=== PATIENT | male | born 1985 | race Caucasian/White ===

== ENCOUNTER → 2021-08-01 09:51 | Outpatient (BNVA) | payer MEDICAID, SELFPAY | PROVIDERS: Visit Provider Nurse Practitioner | DX: I10 Essential (primary) hypertension (principal) | CPT/HCPCS: 80053; 80061; 81000 ==

== ENCOUNTER → 2021-08-02 07:36 | Outpatient (BNVA) | payer MEDICAID, SELFPAY | PROVIDERS: Visit Provider Nurse Practitioner | DX: R73.9 Hyperglycemia, unspecified (principal) | CPT/HCPCS: 83036 ==

== ENCOUNTER 2022-01-11 20:12 | Emergency (ER) | payer MEDICAID, SELFPAY ==
[2022-01-11 20:18] VITALS: BP 136/86; PULSE 97; RESP 18; TEMP 36.7; O2SAT 98; BMI 41.9
--- NOTE | 2022-01-11 20:50 | CTR_ITS ---
PROCEDURE INFORMATION: Exam: CT Abdomen And Pelvis Without Contrast Exam date and time: 01/11/2022 9:08 PM Age: 36 years old Clinical indication: Abdominal pain; Additional info: Ruq abd pain R flank pain TECHNIQUE: Imaging protocol: Computed tomography of the abdomen and pelvis without contrast. Radiation optimization: All CT scans at this facility use at least one of these dose optimization techniques: automated exposure control; mA and/or kV adjustment per patient size (includes targeted exams where dose is matched to clinical indication); or iterative reconstruction. COMPARISON: No relevant prior studies available. RADIATION DOSE METRICS: Total DLP (mGy-cm): 1216.83 FINDINGS: Lungs: Left basilar linear scarring-atelectasis. Liver: Mild hepatomegaly with diffuse steatosis. No cirrhosis. Area of fatty sparing in the posterior left lobe. Gallbladder and bile ducts: Normal. No calcified stones. No ductal dilation. Pancreas: Normal. No ductal dilation. Spleen: Normal. No splenomegaly. Adrenal glands: Normal. No mass. Kidneys and ureters: Nonobstructing left interpolar renal calculus measuring 2 x 2 mm. Stomach and bowel: Moderate amount of fecal retention. No obvious bowel dilatation, pneumatosis or suspicious bowel wall thickening however assessment is limited due to lack of contrast. Appendix: Normal appendix. Intraperitoneal space: Unremarkable. No free air. No significant fluid collection. Vasculature: No abdominal aortic aneurysm. Lymph nodes: No enlarged lymph nodes. Urinary bladder: Unremarkable as visualized. Reproductive: Unremarkable as visualized. Bones/joints: No acute fracture. Soft tissues: No acute findings. CT/CT kidney stone [id number] IMPRESSION: 1. No acute urinary tract findings or obstructing urinary calculi. Punctate nonobstructing left renal calculus is present. Somewhat limited exam due to lack of contrast. 2. Moderate stool burden. No acute bowel findings otherwise. 3. Mild hepatomegaly with diffuse steatosis. Clinical correlation for hepatitis should be obtained.
[2022-01-11 21:04] LABS: Basophils # 0.1 10^3/uL (0.0-0.1); Basophils % 0.8 %; Eosinophils # 0.2 10^3/uL (0.0-0.8); Eosinophils % 1.9 %; Hematocrit 48.4 % (42.0-52.0); Hemoglobin 16.5 g/dL (11.7-16.6); Lymphocytes # 3.7 10^3/uL (0.8-4.8); Lymphocytes % 36.2 %; Mean Corpuscular HGB Conc 34.1 g/dL (30.0-36.0); Mean Corpuscular Hemoglobin 29.1 pg (28.0-34.0); Mean Corpuscular Volume 85.4 fl (80-94); Mean Platelet Volume 9.7 fL (7.4-10.4); Monocytes # 0.9 10^3/uL (0.2-0.9); Monocytes % 8.5 %; Neutrophils % 52.3 %; Nucleated Red Blood Cells % 0 %; Platelet Count 334 10^3/cmm (130-400); Red Blood Count 5.67 10^6/uL (4.1-5.3); Red Cell Distribution Width 11.7 % (12.1-15.1); White Blood Count 10.3 10^3/uL (4.0-10.0)
[2022-01-11] MEDS: ondansetron 2 mg/ML SDV 2 mL 4 MG IVP (21:05)
[2022-01-11 21:07] VITALS: RESP 18
[2022-01-11] MEDS: HYDROmorphone 1 mg/mL INJ 1 mL IVP (21:07)
[2022-01-11 21:08] LABS: Add Urine Microscopic? NO; Charge for UA Resulting for Rev
--- NOTE | 2022-01-11 21:09 | ED_ITS ---
HPI - Abdominal Pain General: Chief Complaint: Abdominal Pain Stated Complaint: ABD Pain and Back Pain Time Seen by Provider: 01/11/22 20:47 Source: patient Mode of arrival: ambulatory Limitations: no limitations History of Present Illness: 36-year-old male who states he has been having right flank pain throughout the day. States that sharp pain in the right flank along with some right upper quadrant pain. He states he had a kidney stone before and this feels similar pain does go on his testicle denies any blood in his urine denies any worsening proving factors he has had no vomiting or diarrhea. Denies any fevers. Associated Symptoms: Denies chills, dysuria and fever(s) Review of Systems Const: Denies: fever(s), chills, body aches or change in appetite Eyes: Denies: blurry vision or eye discomfort ENMT: Denies: throat pain or dental pain Card: Denies: chest pain Resp: Denies: dyspnea GI: Reports: abdominal pain : Denies: dysuria Musc: Denies: neck pain or back pain Skin/Breast: Denies: rash Neuro: Denies: headache(s) Psych: Denies: depression Dante/Lymph: Denies: easy bruising All/Imm: Denies: urticaria PFSH ED PFSH: Medical History (Updated 01/11/22 @ 22:06 by Milena Alcantar MD) Essential hypertension SEVERO (generalized anxiety disorder) Lumbar neuralgia Surgical History No pertinent past surgical history Family History Grandfather Cancer Diabetes Hypertension Grandmother Diabetes Hypertension Mother Lung disease Denies family history of Clotting disorder Chronic kidney disease (CKD) Suicide Stroke Social History Smoking and tobacco status: former smoker Second hand smoke exposure: No Smoking risk assessment/counseling performed?: No Alcohol intake: never Desire information about alcohol rehabilitation?: No Counseling given: No Desire information about substance/drug rehabilitation?: No Counseling given: No Adopted: No Caregiver/support person: No Lives independently: Yes Household members: spouse and children Housing: Manufactured/Mobile home Marital status: Number of children: 5 Highest education level completed: Some College, No Degree service: No Current occupational status: employed Pets and animals: Yes Current gender identity: Male Physical Exam Const: COMMON NORMALS: no acute distress, patient oriented x3 and healthy appearing HENMT: COMMON NORMALS: normocephalic and atraumatic HEAD & SCALP: normocephalic and atraumatic Eye: COMMON NORMALS: Equal, round and reactive pupils present and EOMs intact bilaterally PUPIL: Yes Equal, round and reactive pupils present Neck/C-Spine: COMMON NORMALS: full ROM and supple Chest: COMMONS NORMALS: normal inspection of the chest and normal palpation of entire chest wall Resp: COMMON NORMALS: normal respiratory effort, No retractions, No use of accessory muscles and clear to auscultation bilaterally AUSCULTATION: clear to auscultation bilaterally Cardio: COMMON NORMALS: regular rate, regular rhythm and No murmurs present (Cardio) RATE: regular rate RHYTHM: regular rhythm GI: COMMON NORMALS: Normal to inspection, nondistended, normoactive bowel sounds present, Soft to palpation, non-tender and no masses PALPATION: Yes Soft to palpation Extremity: COMMON NORMALS: normal to inspection and full ROM Neuro: COMMON NORMALS: patient oriented x3, moves all extremities and no focal motor deficits Psych: COMMON NORMALS: mental status grossly normal, Normal thought process present and cooperative THOUGHT PROCESS: Normal thought process present Skin: COMMON NORMALS: no rashes or lesions noted and no wounds GENERAL SKIN EXAM: no rashes or lesions noted Course Vital Signs: Vital signs: Vital Signs Temperature 98.1 F 01/11/22 20:18 Pulse Rate 76 01/11/22 21:35 Respiratory Rate 18 01/11/22 21:07 Blood Pressure 147/60 01/11/22 21:35 Pulse Oximetry 95 01/11/22 21:35 Oxygen Delivery Me thod 01/11/22 20:18 MDM - Abdominal Pain Medical Decision Making Patient presents here with abdominal pain CT and blood work are all normal we will get him follow-up with surgery his pain is improved here he is to return if worsening he understands agrees to plan. Lab Data : 01/11/22 20:55 01/11/22 20:55 Labs/Radiology: Radiology Impressions Abdomen/Pelvis CT 01/11/22 20:50 IMPRESSION: 1. No acute urinary tract findings or obstructing urinary calculi. Punctate nonobstructing left renal calculus is present. Somewhat limited exam due to lack of contrast. 2. Moderate stool burden. No acute bowel findings otherwise. 3. Mild hepatomegaly with diffuse steatosis. Clinical correlation for hepatitis should be obtained. Laboratory Results WBC 10.3 10^3/uL (4.0-10.0) H 01/11/22 20:55 RBC 5.67 10^6/uL (4.1-5.3) H 01/11/22 20:55 Hgb 16.5 g/dL (11.7-16.6) 01/11/22 20:55 Hct 48.4 % (42.0-52.0) 01/11/22 20:55 MCV 85.4 fl (80-94) 01/11/22 20:55 MCH 29.1 pg (28.0-34.0) 01/11/22 20:55 MCHC 34.1 g/dL (30.0-36.0) 01/11/22 20:55 RDW 11.7 % (12.1-15.1) L 01/11/22 20:55 Plt Count 334 10^3/cmm (130-400) 01/11/22 20:55 MPV 9.7 fL (7.4-10.4) 01/11/22 20:55 Neut % (Auto) 52.3 % 01/11/22 20:55 Lymph % (Auto) 36.2 % 01/11/22 20:55 [place] % (Auto) 8.5 % 01/11/22 20:55 Eos % (Auto) 1.9 % 01/11/22 20:55 Baso % (Auto) 0.8 % 01/11/22 20:55 Neut # (Auto) 5.40 10^3/uL (1.8-7.7) 01/11/22 20:55 Lymph # (Auto) 3.7 10^3/uL (0.8-4.8) 01/11/22 20:55 [place] # (Auto) 0.9 10^3/uL (0.2-0.9) 01/11/22 20:55 Eos # (Auto) 0.2 10^3/uL (0.0-0.8) 01/11/22 20:55 Baso # (Auto) 0.1 10^3/uL (0.0-0.1) 01/11/22 20:55 Nucleated RBC % (auto) 0 % 01/11/22 20:55 Nucleated RBCs # 0.0 /100WBC 01/11/22 20:55 Sodium 137 mmol/L (136-145) 01/11/22 20:55 Potassium 4.0 mmol/L (3.5-5.1) 01/11/22 20:55 Chloride 97 mmol/L (98-107) L 01/11/22 20:55 Carbon Dioxide 28 mmol/L (22-29) 01/11/22 20:55 Anion Gap 16.0 (5-19) 01/11/22 20:55 BUN 16 mg/dL (6-20) 01/11/22 20:55 Creatinine 0.9 mg/dL (0.7-1.2) 01/11/22 20:55 GFR Calculation 95.0 mL/min (90-130) 01/11/22 20:55 Glucose 113 mg/dL (65-115) 01/11/22 20:55 Calculated Osmolality 286 mOsm/kg (285-295) 01/11/22 20:55 Calcium 9.8 mg/dL (8.5-10.5) 01/11/22 20:55 Total Bilirubin 0.3 mg/dL (0.15-1.2) 01/11/22 20:55 AST 45 U/L (0-40) H 01/11/22 20:55 ALT 68 U/L (0-41) H 01/11/22 20:55 Alkaline Phosphatase 78 U/L (40-130) 01/11/22 20:55 Total Protein 7.8 g/dL (6.6-8.7) 01/11/22 20:55 Albumin 4.6 g/dL (3.5-5.2) 01/11/22 20:55 Globulin 3.2 g/dL (1.3-4.6) 01/11/22 20:55 Lipase 29 U/L (13-60) 01/11/22 20:55 Urine Color Yellow (Yellow) 01/11/22 20:55 Urine Appearance Clear (CLEAR) 01/11/22 20:55 Urine pH 6 (5-7) 01/11/22 20:55 Ur Specific [place] 1.020 (1.005-1.030) 01/11/22 20:55 Urine Protein Neg (Negative) 01/11/22 20:55 Urine Glucose (UA) Norm (Normal) 01/11/22 20:55 Urine Ketones Negative (Negative) 01/11/22 20:55 Urine Blood Neg (Negative) 01/11/22 20:55 Urine Nitrate Negative (Negative) 01/11/22 20:55 Urine Bilirubin Neg (Negative) 01/11/22 20:55 Urine Urobilinogen Neg mg/dL (Negative) 01/11/22 20:55 Ur Leukocyte Esterase Negative (Negative) 01/11/22 20:55 Discharge Plan Discharge Patient Disposition: Home Clinical Impression: Abdominal pain Condition: Stable Prescriptions: New hydrocodone-acetaminophen 5-325 mg tablet 1 tab PO Q6H PRN (Reason: pain) Qty: 14 0RF ondansetron 4 mg tablet,disintegrating 4 mg PO Q6H PRN (Reason: nausea and vomiting) Qty: 14 0RF No Action valsartan-hydrochlorothiazide [Diovan HCT] 320-12.5 mg tablet 1 tab PO DAILY Qty: 30 2RF duloxetine [Cymbalta] 30 mg capsule,delayed release(DR/EC) 30 mg PO BID Qty: 60 2RF famotidine [Pepcid] 40 mg tablet 40 mg PO DAILY Qty: 30 2RF hydroxyzine pamoate 25 mg capsule 25 mg PO BID Qty: 60 2RF Discharge Orders: Discharge ED (Routine); Ordered 01/11/22 Ordered By: Milena Alcantar Referrals: Abhijit Meza MD [Physician] - 1-3 days Kaleb Hamilton, STOVE MECHANIC-C [Primary Care Provider] - Discharge Diet: Advance as tolerated Discharge Activity: Resume usual activity Patient Instructions: Abdominal Pain (ED) Coding Level of Care Code ED Emergency Medicine Physician Assistant for Chg Fwd Exam Comprehensive
[2022-01-11 21:10] LABS: Bilirubin Urine Neg (Negative); Blood Urine Neg (Negative); Glucose Urine UA Norm (Normal); Ketones Urine Negative (Negative); Leukocyte Esterase Urine Negative (Negative); Nitrate Urine Negative (Negative); Protein Urine Neg (Negative); Urine Appearance Clear (CLEAR); Urine Color Yellow (Yellow); Urobilinogen Urine Neg (Negative); pH Urine 6 (5-7)
[2022-01-11 21:28] LABS: Alanine Aminotransferase 68 U/L (0-41); Albumin Level 4.6 g/dL (3.5-5.2); Alkaline Phosphatase 78 U/L (40-130); Aspartate Amino Transferase 45 U/L (0-40); Blood Urea Nitrogen 16 mg/dL (6-20); Calcium 9.8 mg/dL (8.5-10.5); Carbon Dioxide 28 mmol/L (22-29); Chloride 97 mmol/L (98-107); Globulin 3.2 g/dL (1.3-4.6); Glucose 113 mg/dL (65-115); Lipase 29 U/L (13-60); Osmolality Calculated 286 mOsm/kg (285-295); Sodium 137 mmol/L (136-145); Total Bilirubin 0.3 mg/dL (0.15-1.2); Total Protein 7.8 g/dL (6.6-8.7)
[2022-01-11 21:35] VITALS: BP 147/60; PULSE 76; O2SAT 95
[2022-01-11 22:17] VITALS: BP 151/77; PULSE 70; RESP 16; O2SAT 93
--- NOTE | 2022-01-14 10:19 | PC.SOCIAL ---
Addendum entered by Yue Santiago 01/17/22 16:14: gaming manager received the following message from general surgery regarding follow up appointment: unable to reach patient, mailing letter.. 01/17 On 01/15/22 @ 15:57 Anne-Marie Brown Wrote To Sales Vendor Front Off unable to reach patient 01/15 On 01/14/22 @ 16:31 Anne-Marie Brown Wrote To Sales Vendor Front Off unable to reach patient 01/14 gaming manager called the following phone number for patient [phone] - this number is no longer in service. Original Note: F/u Dr. Meza Message sent to Dr. Meza clinic for f/u r/t abdominal pain. Clinic will contact patient with appointment date and time.
== END 2022-01-11 22:15 | disposition home or self-care (01) ==
PROVIDERS: Emergency Provider Emergency Medicine; PCP Nurse Practitioner
DX: R10.9 Unspecified abdominal pain (principal); I10 Essential (primary) hypertension; Z87.891 Personal history of nicotine dependence
CPT/HCPCS: 74176; 80053; 81003; 83690; 85025; 96374; 96375; 99285; J1170; J2405

== ENCOUNTER 2022-05-06 23:24 | Emergency (ER) | payer MEDICAID, SELFPAY ==
--- NOTE | 2022-05-06 23:25 | XRR_ITS ---
PROCEDURE INFORMATION: Exam: XR Chest Exam date and time: 05/06/2022 11:55 PM Age: 36 years old Clinical indication: Chest pressure; Patient HX: C/O chest pain TECHNIQUE: Imaging protocol: Radiologic exam of the chest. Views: 1 view. COMPARISON: CT kidney stone [id number] 01/11/2022 9:08 PM FINDINGS: Lungs: Unremarkable. No consolidation. Pleural spaces: Unremarkable. No pleural effusion. No pneumothorax. Heart/Mediastinum: Unremarkable. No cardiomegaly. Bones/joints: Unremarkable. XR/XR chest 1V portable [id number] IMPRESSION: No acute findings.
[2022-05-06 23:26] VITALS: BMI 41.9
--- NOTE | 2022-05-06 23:26 | ED_ITS ---
HPI - Chest Pain General: Chief Complaint: Chest Pain Stated Complaint: cp Time Seen by Provider: 05/06/22 23:25 History of Present Illness: 36-year-old male patient comes in [facility] for complaints of some chest pain that started about 930 this evening. Patient has had 1 previous episode in the summer that resolved on its own. Patient had worsening pressure and discomfort and contacted EMS. They gave patient 1 nitro and 325 aspirin. 1 nitro did relieve the pain patient does report some mild pressure in the chest. Patient had recently started metoprolol on Friday for blood pressure. After patient's first chest discomfort in the summer he was started on valsartan with hydrochlorothiazide but it did not control his blood pressure. Patient denies any nausea or vomiting. Patient reports no recent illness. Patient does have a history of general anxiety disorder, hypertension, acid reflux, and lumbar neuralgia. Patient only takes metoprolol at this time. No family history of early cardiac disease. Associated symptoms: Deny dyspnea, nausea or vomiting Review of Systems General: Reports: 10 or more systems reviewed and unremarkable except in HPI and below Card: Reports: chest pain Resp: Denies: dyspnea GI: Denies: nausea or vomiting [facility] ED PFSH: Medical History (Updated 05/07/22 @ 00:26 by ASHLEY Foy) Essential hypertension SEVERO (generalized anxiety disorder) Lumbar neuralgia Surgical History No pertinent past surgical history Family History Grandfather Cancer Diabetes Hypertension Grandmother Diabetes Hypertension Mother Lung disease Denies family history of Clotting disorder Chronic kidney disease (CKD) Suicide Stroke Social History Smoking and tobacco status: former smoker Second hand smoke exposure: No Smoking risk assessment/counseling performed?: No Alcohol intake: never Desire information about alcohol rehabilitation?: No Counseling given: No Desire information about substance/drug rehabilitation?: No Counseling given: No Adopted: No Caregiver/support person: No Lives independently: Yes Household members: spouse and children Housing: Manufactured/Mobile home Marital status: Number of children: 5 Highest education level completed: Some College, No Degree service: No Current occupational status: employed Pets and animals: Yes Current gender identity: Male Physical Exam Const: COMMON NORMALS: alert HENMT: COMMON NORMALS: normocephalic HEAD & SCALP: normocephalic Neck/C-Spine: COMMON NORMALS: full ROM Chest: COMMONS NORMALS: normal palpation of entire chest wall Resp: COMMON NORMALS: normal respiratory effort and clear to auscultation bilaterally AUSCULTATION: clear to auscultation bilaterally Cardio: COMMON NORMALS: regular rate and regular rhythm RATE: regular rate RHYTHM: regular rhythm GI: COMMON NORMALS: Soft to palpation and non-tender PALPATION: Yes Soft to palpation Extremity: COMMON NORMALS: no pedal edema Neuro: SENSORIUM/ORIENTATION: Yes alert Skin: COMMON NORMALS: turgor normal GENERAL SKIN EXAM: turgor normal Course Vital Signs: Vital signs: Vital Signs Pulse Rate 67 05/06/22 23:28 Respiratory Rate 16 05/06/22 23:28 Blood Pressure 139/85 05/06/22 23:28 Pulse Oximetry 97 05/06/22 23:28 Oxygen Delivery Me thod 05/06/22 23:28 MDM - Chest Pain Medical Decision Making 36-year-old male patient comes in [facility] with complaints of chest pain. Patient started having chest pain about 930 contacted EMS and was brought in to the emergency room. Patient was given 325 aspirin and 1 nitro glycerin in route . Patient reports nitroglycerin has resolved chest discomfort. On exam lungs are clear to auscultation. Vital signs are normal. Differential diagnosis includes not limited to stable angina, ACS, adverse drug effect, anxiety. Troponin was 6, CBC CMP was unremarkable. Chest x-ray was normal. EKG showed normal sinus rhythm without signs of ischemia. Reviewed exam with patient with recommendations for follow-up with primary care regarding medications and possibility of adverse drug effects. Suspect metoprolol might be causing some angina. Recommend follow-up with cardiology for further evaluation and treatment. Patient reported understanding and agreed to plan. Patient was written for nitroglycerin tabs to be used as needed for severe pain. Patient stated understanding agreed to plan. Lab Data 05/06/22 23:33 05/06/22 23:33 Radiology Impressions Chest X-Ray 05/06/22 23:25 IMPRESSION: No acute findings. Laboratory Results WBC 9.8 10^3/uL (4.0-10.0) 05/06/22 23:33 RBC 5.37 10^6/uL (4.1-5.3) H 05/06/22 23: Hgb 15.5 g/dL (11.7-16.6) 05/06/22 23: Hct 45.0 % (42.0-52.0) 05/06/22 23: MCV 83.8 fl (80-94) 05/06/22: MCH 28.9 pg (28.0-34.0) 05/06/22: MCHC 34.4 g/dL (30.0-36.0) 05/06/22: RDW 12.1 % (12.1-15.1) 05/06/22: Plt Count 334 10^3/cmm (130-400) 05/06/22 23: MPV 9.3 fL (7.4-10.4) 05/06/22 23: Neut % (Auto) 49.8 % 05/06/22 23: Lymph % (Auto) 38.9 % 05/06/22 23: [place] % (Auto) 8.4 % 05/06/22 23: Eos % (Auto) 1.9 % 05/06/22: Baso % (Auto) 0.9 % 05/06/22: Neut # (Auto) 4.88 10^3/uL (1.8-7.7) 05/06/22: Lymph # (Auto) 3.8 10^3/uL (0.8-4.8) 05/06/22 23: [place] # (Auto) 0.8 10^3/uL (0.2-0.9) 05/06/22: Eos # (Auto) 0.2 10^3/uL (0.0-0.8) 05/06/22: Baso # (Auto) 0.1 10^3/uL (0.0-0.1) 05/06/22: Nucleated RBC % (auto) 0 % 05/06/22: Nucleated RBCs # 0.0 /100WBC 05/06/22: PT 13.10 SECONDS (12.1-14.9) 05/06/22 23: INR 0.96 (0.8-1.2) 05/06/22 23:33 APTT 25.6 SECONDS (23.9-36.7) 05/06/22: D-Dimer 0.34 ug/mIFEU (0-0.59) 05/06/22 23:33 Sodium 137 mmol/L (136-145) 05/06/22 23: Potassium 3.7 mmol/L (3.5-5.1) 05/06/22: Chloride 98 mmol/L (98-107) 05/06/22: Carbon Dioxide 26 mmol/L (22-29) 05/06/22: Anion Gap 16.7 (5-19) 05/06/22: BUN 10 mg/dL (6-20) 05/06/22: Creatinine 0.8 mg/dL (0.7-1.2) 05/06/22: GFR Calculation 108.8 mL/min (90-130) 05/06/22: Glucose 113 mg/dL (65-115) 05/06/22 23: Calculated Osmolality 284 mOsm/kg (285-295) L 05/06/22: Calcium 10.0 mg/dL (8.5-10.5) 05/06/22: Total Bilirubin 0.2 mg/dL (0.15-1.2) 05/06/22: AST 37 U/L (0-40) 05/06/22: ALT 76 U/L (0-41) H 05/06/22: Alkaline Phosphatase 73 U/L (40-130) 05/06/22 23: Troponin T Baseline 6 ng/L (0-15) 05/06/22: NT-Pro-B Natriuret Pep 57 pg/mL (0-125) 05/06/22: Total Protein 7.6 g/dL (6.6-8.7) 05/06/22 23: Albumin 4.7 g/dL (3.5-5.2) 05/06/22: Globulin 2.9 g/dL (1.3-4.6) 05/06/22: Lipase 31 U/L (13-60) 05/06/22 23:33 EKG Data EKG 1: EKG interpretation date: 05/06/22 EKG interpretation time: 23:37 Prior EKG tracings: not available for review Interpretation: EKG shows normal sinus rhythm with a regular rate at [address] elevation or ectopy is noted. No prior exam was available for comparison. Discharge Plan Discharge Patient Disposition: Home Clinical Impression: Chest pain Condition: Stable Prescriptions: New nitroglycerin 0.4 mg tablet, sublingual 0.4 mg sublingual Q5M PRN (Reason: chest pain) Qty: 25 0RF Rx Instructions: do not exceed 3 doses per episode No Action valsartan-hydrochlorothiazide [Diovan HCT] 320-12.5 mg tablet 1 tab PO DAILY Qty: 30 2RF duloxetine [Cymbalta] 30 mg capsule,delayed release(DR/EC) 30 mg PO BID Qty: 60 2RF famotidine [Pepcid] 40 mg tablet 40 mg PO DAILY Qty: 30 2RF hydroxyzine pamoate 25 mg capsule 25 mg PO BID Qty: 60 2RF hydrocodone-acetaminophen 5-325 mg tablet 1 tab PO Q6H PRN (Reason: pain) Qty: 14 0RF ondansetron 4 mg tablet,disintegrating 4 mg PO Q6H PRN (Reason: nausea and vomiting) Qty: 14 0RF Discharge Orders: Discharge ED (Routine); Ordered 05/07/22 Ordered By: Darius Gamble Referrals: Kaleb Hamilton, ENERGY CONSERVATION DIRECTOR-C [Primary Care Provider] - Patient Instructions: Chest Pain (ED) Activity Restrictions/Additional Instructions: Follow-up with primary care in 1 to 2 days for recheck. The chest pain may be secondary to the metoprolol that she was started on. I recommend further discussion with primary care and/or cardiology. Case management will contact you with appointment for cardiology follow-up. Coding Level of Care Code ED Deputy Bailiff for Chg Fwd Exam Comprehensive
[2022-05-06 23:28] VITALS: BP 139/85; PULSE 67; RESP 16; O2SAT 97
--- NOTE | 2022-05-06 23:31 | ECG_ITS ---
[facility] Test Date: 2022-05-06 Pat Name: Sierra Cesar Department: Room: Gender: Male Supervisor Paste Mixing: : 1985 Requested By: Darius Rojo Order Number: [id number] Jaylyn MD: Ana Germain M.D. Measurements Intervals [place] Rate: 66 P: 21 WV: 166 QRS: 63 QRSD: 101 T: 49 QT: 368 QTc: 388 Interpretive Statements SINUS RHYTHM No previous ECG available for comparison Electronically Signed On 05-07-2022 16:06:22 INSOLE FILLER by Ana Germain M.D. [email or web address] francia
[2022-05-06 23:46] LABS: Basophils # 0.1 10^3/uL (0.0-0.1); Basophils % 0.9 %; Eosinophils # 0.2 10^3/uL (0.0-0.8); Eosinophils % 1.9 %; Hemoglobin 15.5 g/dL (11.7-16.6); Lymphocytes # 3.8 10^3/uL (0.8-4.8); Lymphocytes % 38.9 %; Mean Corpuscular HGB Conc 34.4 g/dL (30.0-36.0); Mean Corpuscular Hemoglobin 28.9 pg (28.0-34.0); Mean Corpuscular Volume 83.8 fl (80-94); Mean Platelet Volume 9.3 fL (7.4-10.4); Monocytes # 0.8 10^3/uL (0.2-0.9); Monocytes % 8.4 %; Neutrophils # 4.88 10^3/uL (1.8-7.7); Neutrophils % 49.8 %; Nucleated Red Blood Cells % 0 %; Platelet Count 334 10^3/cmm (130-400); Red Blood Count 5.37 10^6/uL (4.1-5.3); Red Cell Distribution Width 12.1 % (12.1-15.1); White Blood Count 9.8 10^3/uL (4.0-10.0)
[2022-05-06 23:59] LABS: INR 0.96 (0.8-1.2); Partial Thromboplastin Time 25.6 SECONDS (23.9-36.7)
[2022-05-07 00:01] LABS: D Dimer 0.34 ug/mIFEU (0-0.59)
[2022-05-07 00:10] LABS: Troponin(5th) Baseline 6 ng/L (0-15)
[2022-05-07 00:16] LABS: Alanine Aminotransferase 76 U/L (0-41); Albumin Level 4.7 g/dL (3.5-5.2); Alkaline Phosphatase 73 U/L (40-130); Anion Gap 16.7 (5-19); Aspartate Amino Transferase 37 U/L (0-40); Blood Urea Nitrogen 10 mg/dL (6-20); Carbon Dioxide 26 mmol/L (22-29); Chloride 98 mmol/L (98-107); Globulin 2.9 g/dL (1.3-4.6); Glomerular Filtration Rate 108.8 mL/min (90-130); Glucose 113 mg/dL (65-115); Lipase 31 U/L (13-60); NT Pro B Type Natriuretic Pept 57 pg/mL (0-125); Osmolality Calculated 284 mOsm/kg (285-295); Potassium 3.7 mmol/L (3.5-5.1); Sodium 137 mmol/L (136-145); Total Bilirubin 0.2 mg/dL (0.15-1.2); Total Protein 7.6 g/dL (6.6-8.7)
--- NOTE | 2022-05-07 09:55 | DCPLANNER ---
Addendum entered by Yue Santiago 06/27/22 08:19: Patient had a follow up appointment scheduled with heart care - patient did not attend appointment Addendum entered by Yue Santiago 05/10/22 11:20: Patient has a follow up appointment for patient with Heart Care for Sunday June 26, 2022 at 2:[address] Barraza at [facility]. Clinic will call patient with appointment information. Original Note: government program manager had message to schedule a follow up appointment for patient with cardiology. government program manager sent patients information to the front office staff at [facility]. Patients information will be printed and reviewed. Clinic will call patient with appointment information.
== END 2022-05-07 00:49 | disposition home or self-care (01) ==
PROVIDERS: Emergency Provider Nurse Practitioner Family; PCP Nurse Practitioner
DX: R07.9 Chest pain, unspecified (principal); I10 Essential (primary) hypertension; Z87.891 Personal history of nicotine dependence
CPT/HCPCS: 71045; 80053; 83690; 83880; 84484; 85025; 85378; 85610; 85730; 93005; 99285

== ENCOUNTER 2022-11-05 12:26 | Outpatient (CLI) | payer OTHER, MEDICAID, SELFPAY ==
--- NOTE | 2022-11-05 | XRR_ITS ---
PROCEDURE INFORMATION: Exam: XR Lumbosacral Spine Exam date and time: 11/05/2022 12:59 PM Age: 37 years old Clinical indication: Other: Flank pain TECHNIQUE: Imaging protocol: Radiologic exam of the lumbosacral spine. Views: 2 or 3 views. COMPARISON: CT kidney stone [id number] 01/11/2022 9:08 PM FINDINGS: Bones/joints: Normal. No acute fracture. Normal alignment. Soft tissues: Unremarkable. XR/XR lumbar spine 2-3V* [id number] IMPRESSION: No acute findings.
--- NOTE | 2022-11-05 | XRR_ITS ---
PROCEDURE INFORMATION: Exam: XR Thoracic Spine Exam date and time: 11/05/2022 12:59 PM Age: 37 years old Clinical indication: Pain in thoracic spine; Additional info: Thoracic spine pain TECHNIQUE: Imaging protocol: Radiologic exam of the thoracic spine. Views: 3 views. COMPARISON: 1. CR XR chest 1V portable [id number] 05/06/2022 11:[address] kidney stone [id number] 01/11/2022 9:08 PM FINDINGS: Bones/joints: Normal. No acute fracture. Normal alignment. Soft tissues: Unremarkable. XR/XR thoracic spine 2V [id number] IMPRESSION: No acute findings.
== END 2022-11-05 12:27 | disposition home or self-care (01) ==
PROVIDERS: PCP Nurse Practitioner Family; Visit Provider Nurse Practitioner Family
DX: M54.6 Pain in thoracic spine (principal); R10.9 Unspecified abdominal pain
CPT/HCPCS: 72070; 72100

== ENCOUNTER 2023-09-10 20:03 | Emergency (ER) | payer MEDICAID, SELFPAY ==
[2023-09-10 20:10] VITALS: BP 131/81; PULSE 82; RESP 16; TEMP 36.7; O2SAT 99
--- NOTE | 2023-09-10 20:19 | CTR_ITS ---
PROCEDURE INFORMATION: Exam: CT Abdomen And Pelvis Without Contrast Exam date and time: 09/10/2023 8:25 PM Age: 37 years old Clinical indication: Abdominal pain; Patient HX: Right flank pain over the course of two years TECHNIQUE: Imaging protocol: Computed tomography of the abdomen and pelvis without contrast. Radiation optimization: All CT scans at this facility use at least one of these dose optimization techniques: automated exposure control; mA and/or kV adjustment per patient size (includes targeted exams where dose is matched to clinical indication); or iterative reconstruction. COMPARISON: CT kidney stone [id number] 01/11/2022 9:08 PM RADIATION DOSE METRICS: Total DLP (mGy-cm): 1209 FINDINGS: Liver: Hepatic steatosis. Gallbladder and bile ducts: Normal. No calcified stones. No ductal dilation. Pancreas: Normal. No ductal dilation. Spleen: Normal. No splenomegaly. Adrenal glands: Normal. No mass. Kidneys and ureters: Left kidney nonobstructing calyceal stone. Stomach and bowel: Unremarkable. No obstruction. No mucosal thickening. Appendix: No evidence of appendicitis. Intraperitoneal space: Unremarkable. No free air. No significant fluid collection. Vasculature: Unremarkable. No abdominal aortic aneurysm. Lymph nodes: Unremarkable. No enlarged lymph nodes. Urinary bladder: Unremarkable as visualized. Reproductive: Unremarkable as visualized. Bones/joints: Unremarkable. No acute fracture. Soft tissues: Unremarkable. CT/CT abdomen pelvis wo con [id number] IMPRESSION: 1. Negative for acute inflammatory process in the abdomen or pelvis. 2. Hepatic steatosis. 3. Left kidney nonobstructing calyceal stone.
--- NOTE | 2023-09-10 20:52 | W.ED.ABDPA2 ---
HPI - Abdominal Pain General: Chief Complaint: Abdominal Pain Stated Complaint: abd/ back pain right side Time Seen by Provider: 09/10/23 20:23 History of Present Illness: 37-year-old man with a history of anxiety, obesity and hypertension who presents to the emergency room with abdominal pain. This is been going on for well over a year now. However over the last day or so it has become worse. He is having right-sided abdominal pain. He says it is upper and lower abdomen. Radiates down into his testicle. Also radiates up into his chest. Much worse today. Some nausea. No vomiting. No fever. No dysuria. Review of Systems Narrative: Constitutional symptoms: Negative except as documented in HPI. Skin symptoms: Negative except as documented in HPI. Eye symptoms: Negative except as documented in HPI. ENMT symptoms: Negative except as documented in HPI. Respiratory symptoms: Negative except as documented in HPI. Cardiovascular symptoms: Negative except as documented in HPI. Gastrointestinal symptoms: Negative except as documented in HPI. Genitourinary symptoms: Negative except as documented in HPI. Musculoskeletal symptoms: Negative except as documented in HPI. Neurologic symptoms: Negative except as documented in HPI. Psychiatric symptoms: Negative except as documented in HPI. Endocrine symptoms: Negative except as documented in HPI. [facility] PFSH: Medical History (Updated 09/10/23 @ 21:32 by Pascale Gray MD) SEVERO (generalized anxiety disorder) Lumbar neuralgia Essential hypertension Surgical History No pertinent past surgical history Family History Grandfather Cancer Diabetes Hypertension Grandmother Diabetes Hypertension Mother Lung disease Denies family history of Clotting disorder Chronic kidney disease (CKD) Suicide Stroke Social History Smoking and tobacco/nicotine status: former use of tobacco/nicotine Second hand smoke exposure: No Alcohol intake: never Substance/Drug Use: unknown Adopted: No Caregiver/support person: No Lives independently: Yes Household members: spouse and children Housing: Manufactured/Mobile home Marital status: Number of children: 5 Highest education level completed: Some College, No Degree service: No Current occupational status: employed Pets and animals: Yes Do you think of yourself as: Straight/Heterosexual Current gender identity: Male Physical Exam Narrative: EXAM NARRATIVE: General: Alert, no acute distress. Skin: Warm, dry. Head: Normocephalic, atraumatic. Neck: Supple, trachea midline. Eye: Extraocular movements are intact. Ears, nose, mouth and throat: mucosa moist. Cardiovascular: Regular, Normal peripheral perfusion. Respiratory: Lungs are clear to auscultation, respirations are non-labored, breath sounds are equal, Symmetrical chest wall expansion. Gastrointestinal: Soft, no focal abdominal tenderness to palpation, Non distended, Normal bowel sounds. Musculoskeletal: Normal ROM, no deformity. Neurological: Alert and oriented, No focal neurological deficit observed. Psychiatric: Cooperative, appropriate mood & affect. Course Vital Signs: Vital signs: Vital Signs Temperature 98.0 F 09/10/23 20:10 Pulse Rate 82 09/10/23 20:10 Respiratory Rate 16 09/10/23 20:10 Blood Pressure 131/81 09/10/23 20:10 Pulse Oximetry 99 09/10/23 20:10 Oxygen Delivery Me thod Room Air 09/10/23 20:10 MDM - Abdominal Pain Medical Decision Making Medical decision making: Differential diagnosis including but not limited to and based on the above HPI, review of systems and physical exam: In this patient with nonfocal abdominal pain basic lab work and a CT scan were ordered. I have concern for kidney stones, diverticulitis, colitis Orders placed to evaluate differential diagnosis based on the above differential, HPI and physical exam Lab Review: Laboratory results were reviewed and interpreted by myself the emergency room physician. Lab work is fairly unremarkable. No leukocytosis. No renal failure. BUN and creatinine are 10 and 0.9. Glucose is normal. Urinalysis shows a couple of red cells. He also has a stone in his kidney. This all suggest that maybe he had passed a kidney stone today. No active stones in the ureters or bladder at this time though. CT of the abdomen pelvis without contrast: No acute pathology. There is a stone in the kidney. I reviewed the radiology report. I reviewed the patient's medical record. Reexamination: Patient remained stable. No increased work of breathing. Abdominal pains have resolved somewhat. Assessment and plan: Abdominal pain Kidney stones I think the patient may have passed a kidney stone. And this could have been issues in the past with passing small stones. He has a little bit of blood in his urine. Has another stone in his kidney. - Discharged home - Discussed findings and plan with patient. Answered any questions. - All laboratory values were reviewed and interpreted personally by myself, the ER physician - All imaging was reviewed and interpreted personally by myself, the ER physician. - Evaluation and treatment of this problem were appropriate in the emergency setting Lab Data 09/10/23 20:53 09/10/23 20:53 Labs/Radiology: Radiology Impressions Abdomen/Pelvis CT 09/10/23 20:19 IMPRESSION: 1. Negative for acute inflammatory process in the abdomen or pelvis. 2. Hepatic steatosis. 3. Left kidney nonobstructing calyceal stone. Laboratory Results WBC 9.11 10^3/uL (3.29-11.43) 09/10/23 20:53 RBC 5.55 10^6/uL (3.85-5.65) 09/10/23 20:53 Hgb 16.00 g/dL (11.27-16.99) 09/10/23 20:53 Hct 46.1 % (37-53) 09/10/23 20:53 MCV 83.1 fl (82-101) 09/10/23 20:53 MCH 28.8 pg (27-33) 09/10/23 20:53 MCHC 34.7 g/dL (30-55) 09/10/23 20:53 RDW 11.4 % (12.1-15.1) L 09/10/23 20:53 Plt Count 276 10^3/cmm (157-399) 09/10/23 20:53 MPV 9.4 fL (7.4-10.4) 09/10/23 20:53 Neut % (Auto) 49.6 % 09/10/23 20:53 Lymph % (Auto) 39.2 % 09/10/23 20:53 Mcpherson % (Auto) 7.8 % 09/10/23 20:53 Eos % (Auto) 2.1 % 09/10/23 20:53 Baso % (Auto) 1.1 % 09/10/23 20:53 Neut # (Auto) 4.52 10^3/uL (1.8-7.7) 09/10/23 20:53 Lymph # (Auto) 3.6 10^3/uL (0.8-4.8) 09/10/23 20:53 [place]pherson # (Auto) 0.7 10^3/uL (0.2-0.9) 09/10/23 20:53 Eos # (Auto) 0.2 10^3/uL (0.0-0.8) 09/10/23 20:53 Baso # (Auto) 0.1 10^3/uL (0.0-0.1) 09/10/23 20:53 Nucleated RBC % (auto) 0 % 09/10/23 20:53 Nucleated RBCs # 0.0 /100WBC 09/10/23 20:53 Sodium 137 mmol/L (136-145) 09/10/23 20:53 Potassium 4.1 mmol/L (3.5-5.1) 09/10/23 20:53 Chloride 99 mmol/L (98-107) 09/10/23 20:53 Carbon Dioxide 26 mmol/L (22-29) 09/10/23 20:53 Anion Gap 16.1 (5-19) 09/10/23 20:53 BUN 10 mg/dL (6-20) 09/10/23 20:53 Creatinine 0.9 mg/dL (0.7-1.2) 09/10/23 20:53 GFR Calculation 94.4 mL/min (90-130) 09/10/23 20:53 Glucose 104 mg/dL (65-115) 09/10/23 20:53 Calculated Osmolality 283 mOsm/kg (285-295) L 09/10/23 20:53 Calcium 9.1 mg/dL (8.5-10.5) 09/10/23 20:53 Total Bilirubin 0.3 mg/dL (0.15-1.2) 09/10/23 20:53 AST 43 U/L (0-40) H 09/10/23 20:53 ALT 59 U/L (0-41) H 09/10/23 20:53 Alkaline Phosphatase 83 U/L (40-130) 09/10/23 20:53 C-Reactive Protein 13.5 mg/L (0.0-4.9) H 09/10/23 20:53 Total Protein 7.9 g/dL (6.6-8.7) 09/10/23 20:53 Albumin 4.4 g/dL (3.5-5.2) 09/10/23 20:53 Globulin 3.5 g/dL (1.3-4.6) 09/10/23 20:53 Urine Color Yellow (Yellow) 09/10/23 21:09 Urine Appearance Clear (CLEAR) 09/10/23 21:09 Urine pH 6 (5-7) 09/10/23 21:09 Ur Specific [place] 1.005 (1.005-1.030) 09/10/23 21:09 Urine Protein Neg (Negative) 09/10/23 21:09 Urine Glucose (UA) Norm (Normal) 09/10/23 21:09 Urine Ketones Negative (Negative) 09/10/23 21:09 Urine Blood Trace (Negative) H 09/10/23 21:09 Urine Nitrate Negative (Negative) 09/10/23 21:09 Urine Bilirubin Neg (Negative) 09/10/23 21:09 Urine Urobilinogen Neg mg/dL (Negative) 09/10/23 21:09 Ur Leukocyte Esterase Negative (Negative) 09/10/23 21:09 Urine RBC 0-4 /hpf (0-2) H 09/10/23 21:09 Urine WBC None /hpf (0-5) 09/10/23 21:09 Ur Squamous Epith Cells None /hpf (0-5) 09/10/23 21:09 Amorphous Sediment Not Reportable 09/10/23 21:09 Urine Bacteria None /hpf (NONE) 09/10/23 21:09 All radiology interpretation(s) finalized by discharge Discharge Plan Discharge Patient Disposition: Home Clinical Impression: Calculus of kidney Abdominal pain Qualifiers: Abdominal location: unspecified location Qualified Code(s): R10.9 - Unspecified abdominal pain Condition: Stable Prescriptions: New famotidine 40 mg tablet 40 mg PO DAILY Qty: 30 0RF diclofenac sodium 50 mg tablet,delayed release (DR/EC) 50 mg PO Q12H Qty: 20 0RF No Action valsartan-hydrochlorothiazide [Diovan HCT] 320-12.5 mg tablet 1 tab PO DAILY Qty: 30 2RF duloxetine [Cymbalta] 30 mg capsule,delayed release(DR/EC) 30 mg PO BID Qty: 60 2RF famotidine [Pepcid] 40 mg tablet 40 mg PO DAILY Qty: 30 2RF hydroxyzine pamoate 25 mg capsule 25 mg PO BID Qty: 60 2RF hydrocodone-acetaminophen 5-325 mg tablet 1 tab PO Q6H PRN (Reason: pain) Qty: 14 0RF ondansetron 4 mg tablet,disintegrating 4 mg PO Q6H PRN (Reason: nausea and vomiting) Qty: 14 0RF nitroglycerin 0.4 mg tablet, sublingual 0.4 mg sublingual Q5M PRN (Reason: chest pain) Qty: 25 0RF Rx Instructions: do not exceed 3 doses per episode Discharge Orders: Discharge ED (Routine); Ordered 09/10/23 Ordered By: Pascale Gray Referrals: Stewart,ANNALISE Whitaker [Primary Care Provider] - Discharge Diet: Usual diet Discharge Activity: Increase activity as tolerated Patient Instructions: Kidney Stones (ED), Abdominal Pain (ED) Activity Restrictions/Additional Instructions: Thank you for choosing [facility] for your healthcare needs today. Please realize this is an emergency room and that we are providing you with a medical screening exam and this may not be complete and all inclusive of all the testing and or work up that you may need to determine your ailment or severity of your illness. You have been screened and evaluated and felt safe for discharge. Health conditions do change or evolve sometimes and as such it is important that you follow up with your Primary Doctor to be re checked, 3-5 days is a general good time frame for follow up. You are always welcome to return to the ED for re assessment if your symptoms are worsening or you have new concerns Coding Level of Care Code ED [facility] for [facility]
[2023-09-10 20:56] LABS: Basophils # 0.1 10^3/uL (0.0-0.1); Basophils % 1.1 %; Eosinophils # 0.2 10^3/uL (0.0-0.8); Eosinophils % 2.1 %; Hematocrit 46.1 % (37-53); Lymphocytes # 3.6 10^3/uL (0.8-4.8); Lymphocytes % 39.2 %; Mean Corpuscular HGB Conc 34.7 g/dL (30-55); Mean Corpuscular Hemoglobin 28.8 pg (27-33); Mean Corpuscular Volume 83.1 fl (82-101); Mean Platelet Volume 9.4 fL (7.4-10.4); Monocytes # 0.7 10^3/uL (0.2-0.9); Monocytes % 7.8 %; Neutrophils # 4.52 10^3/uL (1.8-7.7); Neutrophils % 49.6 %; Nucleated Red Blood Cells % 0 %; Platelet Count 276 10^3/cmm (157-399); Red Blood Count 5.55 10^6/uL (3.85-5.65); Red Cell Distribution Width 11.4 % (12.1-15.1); White Blood Count 9.11 10^3/uL (3.29-11.43)
[2023-09-10 21:00] VITALS: BP 137/110; PULSE 74; RESP 16; O2SAT 97
[2023-09-10 21:13] LABS: Alanine Aminotransferase 59 U/L (0-41); Albumin Level 4.4 g/dL (3.5-5.2); Alkaline Phosphatase 83 U/L (40-130); Anion Gap 16.1 (5-19); Aspartate Amino Transferase 43 U/L (0-40); Blood Urea Nitrogen 10 mg/dL (6-20); C Reactive Protein 13.5 mg/L (0.0-4.9); Calcium 9.1 mg/dL (8.5-10.5); Carbon Dioxide 26 mmol/L (22-29); Chloride 99 mmol/L (98-107); Creatinine Clr Calc Pharmacy 141.6503; Globulin 3.5 g/dL (1.3-4.6); Glomerular Filtration Rate 94.4 mL/min (90-130); Glucose 104 mg/dL (65-115); Osmolality Calculated 283 mOsm/kg (285-295); Potassium 4.1 mmol/L (3.5-5.1); Sodium 137 mmol/L (136-145); Total Bilirubin 0.3 mg/dL (0.15-1.2); Total Protein 7.9 g/dL (6.6-8.7)
[2023-09-10 21:21] LABS: Add Urine Culture? No; Bilirubin Urine Neg (Negative); Blood Urine Trace (Negative); Glucose Urine UA Norm (Normal); Ketones Urine Negative (Negative); Leukocyte Esterase Urine Negative (Negative); Nitrate Urine Negative (Negative); Protein Urine Neg (Negative); RBC Urine 0-4 /hpf (0-2); Specific Gravity, Urine 1.005 (1.005-1.030); Urine Appearance Clear (CLEAR); Urine Color Yellow (Yellow); Urobilinogen Urine Neg (Negative); pH Urine 6 (5-7)
[2023-09-10 21:30] VITALS: BP 119/87; PULSE 72; RESP 16; O2SAT 91
[2023-09-10] MEDS: ketorolac 60 mg/2 mL INJ IM (21:35)
== END 2023-09-10 21:40 | disposition home or self-care (01) ==
PROVIDERS: Emergency Provider Emergency Medicine; PCP Nurse Practitioner Family
DX: N20.0 Calculus of kidney (principal); Z87.891 Personal history of nicotine dependence; I10 Essential (primary) hypertension
CPT/HCPCS: 36415; 74176; 80053; 81001; 85025; 86140; 96372; 99284; J1885